=== PATIENT | male | born 1980 | race Hispanic/Latino ===

== ENCOUNTER 2019-10-29 09:36 | Emergency (ER) | payer OTHER, BC, SELFPAY ==
--- NOTE | ~2019-10-29 | XR_ITS ---
XR knee LT min 4V 10/29/2019 10:14 INDICATION: Left knee pain. Swelling and bruising. PROCEDURE: 4 views left knee COMPARISON: No prior studies for comparison. FINDINGS: Fracture, dislocation or subluxation is not identified. There is moderate infrapatellar sof t tissue swelling. The soft tissues appear within normal limits. No foreign bodies are identified. IMPRESSION: 1: NO ACUTE BONE OR JOINT ABNORMALITY IDENTIFIED. Reviewed, dictated and finalized at location A.
[2019-10-29 09:41] VITALS: BP 158/97; PULSE 84; RESP 18; TEMP 36.8; O2SAT 100
--- NOTE | 2019-10-29 10:07 | ED.LOWEXIN ---
HPI - Extremity Injury (Lower) General Chief Complaint: Extremity Injury, Lower Stated Complaint: Left knee swollen Time Seen by Provider: 10/29/19 09:44 Source: RN notes reviewed History of Present Illness HPI Narrative: Patient presents emergency department from home for left knee pain. Patient states that symptoms began 2 days ago. 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 he states that he had not had initial complaint of pain but when he got home he began to notice aching in his left knee he states that he began to notice an area of swelling just inferior to the knee with bruising over that aspect as well as laterally on the knee he denies any known direct trauma to the leg he denies any other pain in the leg denies any fevers or chills or any other symptoms states the knee feels tight and pain is worse with flexion of the knee Related Data Allergies Allergy/AdvReac Type Severity Reaction Status Date / Time No Known Allergies Allergy Verified 10/29/19 09:46 Review of Systems Review of Systems: Narrative: Gen.: Denies fevers or chills Musculoskeletal: See HPI Neuro: Denies numbness, tingling, weakness Skin: Denies rash Endo: Denies DM PMFSH Past Medical History Medical History (Updated 10/29/19 @ 11:44 by Ta Birmingham DO) Patient denies significant medical history Social History Social History (Updated 10/29/19 @ 10:08 by Ta Birmingham DO) Smoking status: Never smoker Gender identity (if verbalized by the patient): Male Exam Narrative: Exam Narrative: APPEARANCE: No acute distress, nontoxic, resting in bed Eyes: EOMI HEENT: Normocephalic, atraumatic, RESPIRATORY: No respiratory distress MUSCULOSKELETAl: Tender to palpation with swelling and ecchymosis just inferior to the left knee with mild ecchymosis over the lateral knee patient able to hold the leg in full extension pain with flexion greater than 45 degrees, no tenderness of the left ankle or hip, dorsalis pedis pulse 2+, neurovascular intact NEURO: Awake and alert. Following commands, speech normal, no focal deficits SKIN:: Warm, dry. Normal Color no rash or lesions Course Course Emergency Course: Discussed with patient results of workup and diagnosis. Discussed need for follow-up with primary care, proper use of medication, and reasons to return to the emergency department. Patient understands and agrees to current treatment plan Vital Signs Vital signs: Vital Signs Temperature 98.3 F 10/29/19 09:41 Pulse Rate 84 10/29/19 09:41 Respiratory Rate 18 10/29/19 09:41 Blood Pressure 158/97 H 10/29/19 09:41 Pulse Oximetry 100 10/29/19 09:41 Temperature 98.3 F 10/29/19 09:41 Pulse Rate 84 10/29/19 09:41 Respiratory Rate 18 10/29/19 09:41 Blood Pressure 158/97 H 10/29/19 09:41 Pulse Oximetry 100 10/29/19 09:41 MDM - Extremity Injury (Lower) Imaging Data Radiologist's impression: ITS Impressions Knee X-Ray 10/29/19 10:21 IMPRESSION: 1: NO ACUTE BONE OR JOINT ABNORMALITY IDENTIFIED. Discharge Plan Discharge Clinical Impression: Left knee sprain Patient Disposition: Home, Self-Care Condition: Stable Instructions: Antibiotic Form, Knee Sprain (ED) Additional Instructions: Return for increasing pain numbness or tingling in extremities or any other symptoms of concern Prescriptions: New ibuprofen [IBU] 600 mg tablet 600 mg PO Q6H PRN (Reason: pain) Qty: 20 RF: 0 Follow-up/Referrals: Kayode Watkins MD [Physician] - (Follow-up in 1 to 2 days for further orthopedic treatment and evaluation) UNKNOWN,DOCTOR [Primary Care Provider] - Stand Alone Forms: Work/School Release IP Time of Disposition: 11:44
== END 2019-10-29 11:59 | disposition home or self-care (01) ==
PROVIDERS: Emergency Provider Emergency Medicine
DX: S83.92XA Sprain of unspecified site of left knee, initial encounter (principal); X50.0XXA Overexertion from strenuous movement or load, initial encounter
CPT/HCPCS: 73564; 99283

== ENCOUNTER 2020-02-12 16:55 | Emergency (ER) | payer OTHER, SELFPAY ==
--- NOTE | ~2020-02-12 | CT_ITS ---
EXAMINATION: CT brain wo con INDICATION: Headache COMPARISON: None TECHNIQUE: Standard unenhanced head CT. The dose-length product (DLP) was 681.00 mGy-cm. The mA was a djusted according to patient size. Iterative reconstruction technique was employed. FINDINGS: There is no intracranial hemorrhage, acute infarction, or abnormal mass lesion. The ventric les are normal. There is no abnormal mass effect or midline shift. The gusman-white matter differentiat ion is normal. The basal cisterns are patent. The orbits are normal. The paranasal sinuses, mastoids and calvarium are normal. IMPRESSION: 1. No acute intracranial abnormality. Reviewed, dictated and finalized at location A.
--- NOTE | ~2020-02-12 | XR_ITS ---
EXAMINATION: XR chest 1V portable INDICATION: Fatigue and high blood pressure TECHNIQUE: Portable AP chest at 1806 hours COMPARISON: None available FINDINGS: The lungs are free of acute opacities. There is no pleural effusion or pneumothorax. The ca rdiomediastinal silhouette is normal. The visualized bones and soft tissues are unremarkable. IMPRESSION: 1. No acute cardiopulmonary abnormality. Reviewed, dictated and finalized at location A.
[2020-02-12 17:00] VITALS: BP 142/91; PULSE 75; RESP 16; TEMP 36.7; O2SAT 100
--- NOTE | 2020-02-12 17:43 | ECG_ITS ---
Measurements Intervals [place] Rate: 59 P: 22 OH: 173 QRS: 33 QRSD: 89 T: 45 QT: 398 QTc: 396 Interpretive Statements SINUS BRADYCARDIA BORDERLINE ECG Electronically Signed On 02-12-2020 19:44:38 CDT by Migel Stratton D.O.
[2020-02-12 18:08] LABS: Basophils Percent Auto 0.7 % (0.2-1.2); Eosinophils Percent Auto 1.1 % (0-4.4); Hematocrit 43.9 % (42.0-52.0); Hemoglobin 14.8 g/dL (14.0-18.0); Immature Granulocyte Absolute 0.01 K/mm3 (0.00-0.031); Immature Granulocyte Percent A 0.4 % (0-0.5); Lymphocytes Absolute Auto 1.05 K/mm3 (0.9-3.2); Lymphocytes Percent Auto 38.3 % (18.3-44.2); Mean Corpuscular HGB Conc 33.7 g/dl (32-36); Mean Corpuscular Volume 88.9 fl (80-100); Mean Platelet Volume 11.4 fl (7.4-10.4); Monocytes Absolute Auto 0.6 K/mm3 (0.1-0.6); Monocytes Percent Auto 20.1 % (2.6-8.5); Neutrophils Absolute Auto 1.1 K/mm3 (1.3-6.7); Neutrophils Percent Auto 39.4 % (45.5-73.1); Platelet Count Result 154 k/mm3 (150-375); Red Blood Count 4.94 M/mm3 (4.6-6.20); Red Cell Distribution Width 13.5 % (11.5-14.5); White Blood Count 2.7 K/mm3 (4.5-10.0)
--- NOTE | 2020-02-12 18:08 | ED.HA ---
HPI - Headache General Chief Complaint: Headache <Manuela Little PA-C - Last Filed: 02/12/20 20:42> Stated Complaint: headache, body aches, fatigue <Manuela Little PA-C - Last Filed: 02/12/20 20:42> Time Seen by Provider: 02/12/20 17:06 <Manuela Little PA-C - Last Filed: 02/12/20 20:42> Source: patient and family <ROGER Jones Last Filed: 02/12/20 20:42> Mode of arrival: ambulatory <ROGER Jones Last Filed: 02/12/20 20:42> Limitations: no limitations <ROGER Jones Last Filed: 02/12/20 20:42> History of Present Illness HPI Narrative: Patient presents with chief complaint of headache that has been progressive over the past 4 days. Patient states he does not normally have a history of headaches especially ones that are not resolved with Tylenol or ibuprofen. Patient states he has not had any changes in vision or hearing however he has a strong frontal headache that is also made him nauseous. Patient reports body aches and feelings of fatigue. Patient reports he was tested for COVID today and receive his negative results today. Patient states he has taken his blood pressure and reports that it is elevated and he has a history of hypertension in his family as well. Patient states he does not take any medications for hypertension and he is working on finding a primary care provider as he has recently obtained health insurance. Patient denies fever chills, vomiting, diarrhea, chest pain, shortness of breath, cough or any other symptoms. <Manuela Little PA-C - Last Filed: 02/12/20 20:42> Related Data Home Medications: Home Medications Medication Instructions Recorded Confirmed No Home Medications 02/12/20 02/12/20 <ROGER Jones Last Filed: 02/12/20 20:42> Allergies/Adverse Reactions: Allergies Allergy/AdvReac Type Severity Reaction Status Date / Time No Known Allergies Allergy Verified 10/29/19 09:46 <ROGER Jones Last Filed: 02/12/20 20:42> Review of Systems Review of Systems: Narrative: CONSTITUTIONAL: Reports body aches denies fever, chills, or sweats. EYES: Denies visual changes, redness, or discharge. ENT: Denies rhinorrhea, congestion, sore throat, or otalgia. CARDIOVASCULAR: Denies chest pain, palpitations, or edema. RESPIRATORY: Denies cough or dyspnea. GASTROINTESTINAL: Reports nausea denies abdominal pain, vomiting, or diarrhea. GENITOURINARY: Denies dysuria or hematuria. SKIN: Denies rash or itching. MUSCULOSKELETAL: Denies back pain, joint pain, or myalgia. NEUROLOGIC: Reports headache denies numbness, dizziness, or weakness. PSYCHIATRIC: Denies anxiety or depression. <Manuela Little PA-C - Last Filed: 02/12/20 20:42> [facility] Past Medical History Medical History: Medical History (Updated 02/13/20 @ 00:00 by Tavo Pond) Patient denies significant medical history <Manuela Little PA-C - Last Filed: 02/12/20 20:42> Social History Social History: Social History (Updated 10/29/19 @ 10:08 by Ta Birmingham DO) Smoking status: Never smoker Gender identity (if verbalized by the patient): Male <Manuela Little PA-C - Last Filed: 02/12/20 20:42> Exam Narrative: Exam Narrative: GENERAL: Well-appearing, well-nourished. HEAD: Normocephalic, atraumatic. EYES: PERRLA and EOMI. ENT: Nares clear, no rhinorrhea or epistaxis. Mucous membranes moist. Oropharynx without tonsillar hypertrophy exudate or other lesions. Bilateral TMs pearly gusman nonbulging NECK: Supple. No adenopathy or masses. No vertebral tenderness or loss of ROM. CHEST: Clear to auscultation. No respiratory distress. No wheezes rales or rhonchi HEART: Regular rate and rhythm. Normal peripheral pulses. EXTREMITIES: No acute changes in ROM. No edema. SKIN: Warm, dry, no rash. NEURO: No focal deficits. ROM and sensation in extremities intact. Alert and oriented x3. Speech is appropriate. PSYCH: Normal mood and
[2020-02-12 18:18] LABS: Alanine Aminotransferase 52 U/L (4-50); Albumin Level 4.1 g/dL (3.5-5.1); Alkaline Phosphatase 86 U/L (38-126); Anion Gap 5 mmol/L (8-16); Aspartate Amino Transferase 52 U/L (17-59); Bilirubin,Total 0.4 mg/dL (0.2-1.3); Blood Urea Nitrogen 9 mg/dL (9-20); Carbon Dioxide 31 mmol/L (22-30); Chloride 100 mmol/L (98-107); Estimated CRCL calculation 90 ml/min; Estimated Glomerular Filt Rate > 60; Glucose 121 mg/dL (75-110); Potassium 3.9 mmol/L (3.4-5.0); Sodium 136 mmol/L (137-145)
[2020-02-12 18:28] LABS: Atypical Lymphocytes Present; Platelet Estimate Adequate (Adequate)
[2020-02-12] MEDS: ONDANSETRON INJ 4 MG/2 ML VIAL IV PUSH (19:01)
[2020-02-12] MEDS: diphenhydrAMINE HCl INJ 50 MG/ML VIAL 25 MG IV PUSH (19:01)
[2020-02-12] MEDS: KETOROLAC 15 MG/ML VIAL (*BKC) IV PUSH (19:01)
[2020-02-12 19:51] VITALS: BP 124/87; PULSE 68; RESP 20; O2SAT 98
== END 2020-02-12 20:12 | disposition home or self-care (01) ==
PROVIDERS: Physician Assistant; Emergency Provider Emergency Medicine
DX: R51 Headache (principal); R03.0 Elevated blood-pressure reading, without diagnosis of hypertension
CPT/HCPCS: 36415; 70450; 71045; 80053; 85025; 93005; 96374; 96375; 99284; J1100; J1200; J1885; J2405